=== PATIENT | male | born 1955 | race Caucasian/White ===

== ENCOUNTER → 2017-06-17 08:50 | Outpatient (CLI) | payer OTHER, SELFPAY ==
--- NOTE | 2017-06-17 09:09 | MRI_ITS ---
STUDY: MRI BRAIN WITH AND WITHOUT CONTRAST REASON FOR EXAM: Male, 62 years old. bilat scotoma; pt c/o vision loss left eye, decreased vision right eye. TECHNIQUE: Standardized multiplanar fat and water weighted pulse sequences were obtained. 10 ml of Gadavist contrast material was administered intravenously for the contrast portion of the examination. COMPARISON: None. FINDINGS: Normal size of the ventricles and extra-axial spaces for the patient's age. Normal white matter tracts of the supratentorial brain. Normal bilateral basal ganglia. Normal thalami. There is no extra-axial fluid accumulation. Normal flow voids within the major intracranial circulation suggesting patency by spin echo criteria. Normal venous enhancement. There is no enhancing intra-axial or extra-axial abnormality. Normal sella turcica, pituitary gland, infundibular stalk, optic chiasm and hypothalamus. Normal tectal plate and pineal gland. Normal midbrain, mart and medulla. Normal cerebellum. Normal basal cisterns. Normal bilateral temporal bones. Normal bilateral internal auditory canals. 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 Normal bilateral optic nerve sheath complexes and optic nerves. Normal bilateral intraconal and extraconal spaces. Normal bilateral extraocular muscles. Normal optic chiasm and post-chiasmatic tracts. Normal sella turcica, pituitary gland, infundibular stalk, and hypothalamus. Normal bilateral cavernous sinuses. Normal tectal plate and pineal gland. MRI/Brain W/WO Contrast IMPRESSION: Bulging of the posterior left globe, suggesting staphyloma. No acute intracranial abnormality or masses. Electronically Signed: Montserrat Galeas MD at 10:33 EDT Tel , Service support ,
[2017-06-17 09:25] LABS: BUN 15 mg/dL (7-18); Creatinine, Serum 1.01 mg/dL (0.70-1.30); EST Glomerular Filtration Rate 79 mL/min (>60); Est Glom Filt Rate - Afr Amer 96 mL/min (>60)
== END ==
PROVIDERS: Visit Provider Ophthalmology
DX: H53.413 Scotoma involving central area, bilateral (principal)
CPT/HCPCS: 36415; 70553; 82565; 84520; A9585

== ENCOUNTER 2017-06-17 10:27 | Emergency (ER) | payer OTHER, SELFPAY ==
[2017-06-17 10:28] VITALS: BP 137/93; PULSE 62; RESP 16; TEMP 36.3; O2SAT 98; BMI 33.7
[2017-06-17] MEDS: 0.9% Normal Saline 1,000 ML 150 ML IV (10:56)
[2017-06-17] MEDS: DiphenhydrAMINE 50 MG/ML Syringe IV (10:56)
[2017-06-17] MEDS: MethylPREDNISolone 125 MG/2 ML Vial IV (10:56)
[2017-06-17 11:04] VITALS: BP 148/95; PULSE 60; RESP 23; O2SAT 100
[2017-06-17 12:35] VITALS: BP 138/96; PULSE 67; RESP 18; O2SAT 98
--- NOTE | 2017-06-17 12:36 | ED.RN ---
Pt ambulates to bathroom with steady gait. Denies dizziness. Required no assist.
[2017-06-17 14:11] VITALS: BP 134/94; PULSE 70; RESP 18; O2SAT 98
--- NOTE | 2017-06-17 14:46 | ED.DCSUM_ITS ---
- ER Visit Summary Date of Service: 06/17/17 Chief Complaint: [Allergic reaction] History of Present Illness: The patient is a 62 M [presents to the emergency department with an allergic reaction related to MRI dye. Patient was having an MRI performed of his brain when he developed itching to his eyes and swelling to his eyelids. Patient started to clear his throat and he felt itchy in his throat. Patient felt somewhat short of breath and therefore was brought to the emergency department after the MRI was performed. Patient is never had allergic reaction like this before.] Physical Examination: [HEENT-PERRLA, EOMI. Cranial nerves II through XII grossly intact. TMs clear. Mucous membranes moist. No adenopathy. Patient has edema of the lower eyelids bilaterally. There is no angioedema of the tongue or soft tissue structures of the oropharynx. There is no stridor on exam. Cardiovascular-regular rate and rhythm without murmur or ectopy Lungs-clear to auscultation, chest wall stable without crepitus or subcu emphysema Abdomen-normoactive bowel sounds, soft, nontender, no rebound or rigidity, no peritoneal signs. Extremities-intact ?4, normal range of motion, normal pulses, atraumatic]. No rash noted. Test Results: [None indicated] Emergency Department Course and Treatment: [Patient was medicated with Solu- Medrol, Benadryl, and Pepcid. Patient was also observed for 4 hours. Patient had resolution of his symptoms other than he continues to have some edema of the lower eyelids bilaterally.] Treatment Plan: [Patient will be discharged home with 3 days of prednisone. Patient advised in the future to claim the MRI dye as an allergy.] Disposition: [Discharged home in stable condition] Impression: [Allergic reaction to MRI dye] This note was generated with [employer] dictation software. It may contain incorrect words, spelling, and punctuation that were not noted in review of the chart prior to signing ED Disposition - Plan for ED Patient: Chief Complaint: Allergic Reaction Referrals: Wade Marquez [Primary Care Provider] -
--- NOTE | 2017-06-17 14:48 | ED.DEP ---
ED Disposition - Plan for ED Patient: Chief Complaint: Allergic Reaction Instructions: ED Drug React Allergic Prescriptions: Prednisone 20 mg PO BID #6 tab Referrals: Wade Marquez [Primary Care Provider] - As Needed
[2017-06-17 15:05] VITALS: BP 129/99; PULSE 73; RESP 21; O2SAT 97
== END 2017-06-17 15:08 | disposition home or self-care (01) ==
LOC: ED 12:08
PROVIDERS: Emergency Provider Emergency Medicine; Family Provider Internal Medicine; PCP Internal Medicine
DX: R06.02 Shortness of breath (principal); R22.0 Localized swelling, mass and lump, head; T50.8X5A Adverse effect of diagnostic agents, initial encounter; Y92.238 Other place in hospital as the place of occurrence of the external cause; H40.9 Unspecified glaucoma; Z79.82 Long term (current) use of aspirin; Z79.899 Other long term (current) drug therapy
CPT/HCPCS: 96361; 96365; 96375; 99283; J7030; A4216; J3490

== ENCOUNTER → 2017-09-24 12:40 | Outpatient (CLI) | payer OTHER, SELFPAY ==
[2017-09-24 13:21] LABS: Absolute Lymphocyte Count 1.57 X10^3/ul (0.83-4.51); Absolute Neutrophil Count 2.5 X10^3/uL (2.0-7.7); Basophil# 0.01 X10^3/uL; Basophil% 0.2 % (0-1); Eosinophil# 0.13 X10^3/uL; Eosinophils% 2.8 % (0-5); Hematocrit 42.9 % (40-54); Hemoglobin 15.2 g/dl (13.0-16.5); Lymphocyte # 1.57 X10^3/ul (4.0); Lymphocyte % 33.7 % (19-41); Mean Corp Hgb Conc 35.4 g/gl (32-36); Mean Corpuscular Volume 87.4 fL (80-94); Mean Platelet Vol. 9.1 fl (6.2-12.0); Monocyte# 0.42 X10^3/uL; Neutrophil # 2.51 X10^3/uL (2.7-7.7); Neutrophil % 53.9 % (47-70); POSITIVE COUNT NO; POSITIVE DIFFERENTIAL NO; POSITIVE MORPHOLOGY NO; Platelet Count 187 K/mm3 (150-450); RBC Distribution Width CV 13.2 % (11.6-14.6); RBC Distribution Width SD 41.7 fl (35.1-43.9); Red Blood Count 4.91 M/mm3 (4.6-6.2); White Blood Count 4.7 K/mm3 (4.4-11.0)
[2017-09-24 13:45] LABS: Hemoglobin A1c 5.3 % (4.2-6.3)
[2017-09-24 13:50] LABS: ALB/GLOB Ratio 1.1 RATIO (0.9-2.4); AST(SGOT) 35 U/L (15-37); Alanine Aminotransfer ALT/SGPT 64 U/L (16-61); Alkaline Phosphatase 91 U/L (45-117); Anion Gap 7 (5-15); BUN 16 mg/dL (7-18); BUN/Creat Ratio 16.7 RATIO (10-20); Calcium,Total 8.4 mg/dL (8.5-10.1); Chloride 104 mmol/L (98-107); Cholesterol 176 mg/dL (200); Creatinine, Serum 0.96 mg/dL (0.70-1.30); EST Glomerular Filtration Rate 84 mL/min (>60); Est Glom Filt Rate - Afr Amer 102 mL/min (>60); Globulin 3.6 g/dL (2.2-4.2); Glucose 112 mg/dL (74-106); High Density Lipoprotein 30 mg/dL; PSA,Total- Diagnostic 1.49 ng/mL (0.0-4.0); Potassium 3.8 mmol/L (3.5-5.1); Protein, Total 7.6 g/dL (6.4-8.2); Sodium Level 139 mmol/L (136-145); Thyroid Stim Hormone (TSH) 0.82 uIU/mL (0.358-3.74); Triglycerides 228 mg/dL; Very Low Density Lipoprotein 46 mg/dL (5-40)
== END ==
PROVIDERS: Family Provider Internal Medicine; PCP Internal Medicine; Visit Provider Internal Medicine
DX: I10 Essential (primary) hypertension (principal); E78.5 Hyperlipidemia, unspecified; N40.0 Benign prostatic hyperplasia without lower urinary tract symptoms; R73.9 Hyperglycemia, unspecified; R53.81 Other malaise
CPT/HCPCS: 36415; 80053; 80061; 83036; 83721; 84153; 84443; 85025